=== PATIENT | male | born 1950 | race Caucasian/White ===

== ENCOUNTER 2016-08-19 11:16 | Emergency (ER) | payer OTHER ==
[~2016-08-19] VITALS: Ht 172.7 cm; Wt 79.4 kg
[2016-08-19 11:21] VITALS: BP 138/94
--- NOTE | 2016-08-19 11:37 | ED INFLUENZA/URI COMPLAINT ---
History of Present Illness General Chief Complaint: Upper Respiratory Sx/Fever Stated Complaint: COUGH X 2 MONTHS Source: patient Exam Limitations: no limitations Vital Signs & Intake/Output Vital Signs & Intake/Output Vital Signs Date Time Temp Pulse Resp B/P B/P Pulse O2 O2 Flow FiO2 Mean Ox Delivery Rate 08/19 1152 98 Room Air 08/19 1121 97.2 86 18 138/94 99 Room Air Allergies Coded Allergies: celecoxib (From CELEBREX) (Severe, ANAPHYLAXIS 11/12/15) Reconcile Medications Azithromycin (Zithromax) 250 MG TABLET 1 DP PO AD bronchitis 2 the first day followed by 1 for days 2-5 Benzonatate (Tessalon Perle) 100 MG CAPSULE 1 CAP PO TID PRN cough Mometasone Furoate (Nasonex) 50 MCG SPRAY.PUMP 2 SPRAY NASB DAILY PRN congestion Prednisone 20 MG TABLET 2 TAB PO DAILY cough Triage Note: C/O DRY COUGH X 2 MONTHS, SAW PMD 2 WEEKS AGO, WAS TOLD HE HAD ALLERGIES. STATES THAT WHEN HE TAKES A DEEP BREATH, IT CAUSES COUGHING. DENIES CHEST OR OTHER PAIN. Triage Nurses Notes Reviewed? yes Onset: Gradual Duration: 2 monts Timing: remote history Severity: moderate Severity Numbers: 7 Prior Episodes/Possible Cause: occassional episodes No Modifying Factors: none Associated Symptoms: cough HPI: Patient is a 66-year-old male with history of hepatitis C presenting to the emergency department with chief complaint of nonproductive cough at that has been going on for the past 2 months. Patient reports that the cough is worse in the morning right when he wakes up. History of allergies, does not take anything daily. No daily medications. Denies any fevers or chills nausea or vomiting. No chest pain or shortness of breath. No palpitations. Denies abdominal pain. He does report that he feels pain over the muscles on his abdomen when he is coughing only. No recent travel. Size primary care physician 2 weeks ago who told him that it was his allergies causing the cough. He denied any prescription medications, was not advised to start any over-the- counter medications as well. (RAJINDER LR,MAVIS) Past History Travel History Traveled to [place] past 21 day No Medical History Any Pertinent Medical History? see below for history Neurological: NONE Cardiovascular: NONE Respiratory: NONE Gastrointestinal: hepatitis c Hepatic: NONE Renal: NONE Musculoskeletal: NONE Psychiatric: NONE Endocrine: NONE Tetanus Vaccine: 06/07/13 Surgical History Surgical History: non-contributory Psychosocial History Who do you live with Family What is your primary language Serbian Tobacco Use: Never used ETOH Use: occasional use Family History Hx Contributory? No (MAVIS GONZALEZ) Review of Systems Review of Systems Constitutional: Reports: no symptoms. Comments Review of systems: See HPI, All other systems negative. Constitutional, no chills fever or weight loss HEENT: No visual changes no sore throat Cardiovascular: No chest pain ,palpitation , orthopnea or ankle swelling Skin, no jaundice no rashes Respiratory: No dyspnea sputum or hemoptysis GI: No nausea no vomiting : No dysuria No hematuria Muscle skeletal: no back pain, no neck pain, Neurologic: No numbness no confusion no nicole Psych: No stress anxiety or depression,. Heme/endocrine: No bruising no bleeding no polyuria or polydipsia Immunology: No splenectomy or history of AIDS (MAVIS GONZALEZ) Physical Exam Physical Exam General Appearance: well developed/nourished, no apparent distress, alert, awake , comfortable Ears, Nose, Throat: nasal congestion Comments: Well-developed well-nourished person in no acute distress HEENT: Pupils equally round and reactive to light and accommodation. Nose is atraumatic. External auditory canal and Tympanic membranes clear. Pharynx normal. No swelling or edema. pnd noted in posterior pharynx. Neck: Supple, no lymphadenopathy, normal range of motion without pain or tenderness Back: Nontender Cardiovascular: Regular rate and rhythms no murmurs rubs or gallops, normal JVP Respiratory: Chest nontender. No respiratory distress.breath sounds slightly diminished to auscultation bilaterally, reactive cough on exam. Extremity: No edema, no calf pain Neuro: Alert oriented x3 Skin: No appreciable rash on exposed skin, skin is warm and dry. Psych: Mood and affect is normal, memory and judgment is normal. Core Measures Severe Sepsis Present: No Septic Shock Present: No (MAVIS GONZALEZ) Progress Differential Diagnosis: influenza, pneumonia, pharyngitis, sinusitis, bronchitis Plan of Care: Orders Procedure Date/time Status XRY-CHEST XRAY, PA AND LATERAL 08/19 1143 Active Diagnostic Imaging: Viewed by Me: Radiology Read. Discussed w/RAD: Radiology Read. Radiology Impression: ATIENT: ROSALINDA CANCHOLA JR PRESENT AGE: 66 PATIENT ACCOUNT NO: [id number] : 51 LOCATION: [facility] ORDERING PHYSICIAN: MAVIS LR SERVICE DATE: 08/19/16-1143 EXAM TYPE: RAD - XRY-CHEST XRAY, PA AND LATERAL EXAMINATION: XR CHEST CLINICAL INFORMATION: Cough x2 months. COMPARISON: Chest radiograph 11/12/2015. TECHNIQUE : 2 views of the chest were obtained. FINDINGS: There are ill-defined reticular markings with a basilar predominant distribution. No overt consolidative disease or effusion. The cardiac silhouette and upper mediastinal contours are normal. No acute osseous finding. IMPRESSION: There are ill-defined reticular opacities with a lower lobe predominant distribution. Findings may represent early changes of pulmonary edema. Other infectious or inflammatory conditions are not excluded. No lobar consolidation. DICTATED BY: WILLIE FERNANDEZ MD DATE/TIME DICTATED:08/19/161226 RUBBER TIRE CURER:ELSIE DATE/TIME TRANSCRIBED:1226 CONFIDENTIAL, DO NOT COPY WITHOUT APPROPRIATE AUTHORIZATION. < Electronically signed in Other Vendor System> SIGNED BY: WILLIE FERNANDEZ MD 08/19/16 1235 Initial ED EKG: none Comments: Patient is asymptomatic unless he exerts himself. Patient resting calmly. No lower extremity edema. Vitals are stable. Discussed with Dr. Lee, agrees that x-ray findings are nonspecific. We will treat for questionable bronchitis versus postnasal drip. Patient will follow-up with PCP. Given copy of x-ray report. He'll return for any worsening symptoms or concerns. (RAJINDER LR,MAVIS) Departure Departure Time of Disposition: 1242 Disposition: HOME OR SELF CARE Condition: Stable Clinical Impression Primary Impression: Post-nasal drip Secondary Impressions: Cough Referrals: UNKNOWN (PCP/Family) Additional Instructions: Follow-up with your primary care physician collimating away. Take azithromycin, Medrol Dosepak and Flonase as prescribed. Increase fluids. Return for worsening symptoms or concerns. Attached is here extremity report. PATIENT: ROSALINDA CANCHOLA JR PRESENT AGE: 66 PATIENT ACCOUNT NO: [id number] : 51 LOCATION: [facility] ORDERING PHYSICIAN: MAVIS LR SERVICE DATE: 08/19/16-1143 EXAM TYPE: RAD - XRY-CHEST XRAY, PA AND LATERAL EXAMINATION: XR CHEST CLINICAL INFORMATION: Cough x2 months. COMPARISON: Chest radiograph 11/12/2015. TECHNIQUE: 2 views of the chest were obtained. FINDINGS: There are ill-defined reticular markings with a basilar predominant distribution. No overt consolidative disease or effusion. The cardiac silhouette and upper mediastinal contours are normal. No acute osseous finding. IMPRESSION: There are ill-defined reticular opacities with a lower lobe predominant distribution. Findings may represent early changes of pulmonary edema. Other infectious or inflammatory conditions are not excluded. No lobar consolidation. DICTATED BY: WILLIE FERNANDEZ MD DATE/TIME DICTATED:08/19/161226 RUBBER TIRE CURER:ELSIE DATE/TIME TRANSCRIBED:08/19/161226 CONFIDENTIAL, DO NOT COPY WITHOUT APPROPRIATE AUTHORIZATION. <Electronically signed in Other Vendor System> SIGNED BY: WILLIE FERNANDEZ MD 08/19 1235 Departure Forms: Customer Survey General Discharge Information Prescriptions: Current Visit Scripts Azithromycin (Zithromax) 1 DP PO AD #6 TAB 2 the first day followed by 1 for days 2-5 Benzonatate (Tessalon Perle) 1 CAP PO TID PRN cough #30 CAP Mometasone Furoate (Nasonex) 2 SPRAY NASB DAILY PRN congestion #1 INHAL Prednisone 2 TAB PO DAILY #8 TAB (RAJINDER LR,MAVIS) PA/AEROGRAPHER Co-Sign Statement Statement: ED Attending supervision documentation- [] I saw and evaluated the patient. I have also reviewed all the pertinent lab results and diagnostic results. I agree with the findings and the plan of care as documented in the PA's/AEROGRAPHER's documentation. [X] I have reviewed the ED Record and agree with the PA's/AEROGRAPHER's documentation. [] Additions or exceptions (if any) to the PAs/AEROGRAPHER's note and plan are summarized below: [] (ROOSEVELT EDDY,DAYRON Archer)
--- NOTE | 2016-08-19 12:35 | RADIOLOGY REPORT ---
EXAMINATION: XR CHEST CLINICAL INFORMATION: Cough x2 months. COMPARISON: Chest radiograph 11/12/2015. TECHNIQUE: 2 views of the chest were obtained. FINDINGS: There are ill-defined reticular markings with a basilar predominant distribution. No overt consolidative disease or effusion. The cardiac silhouette and upper mediastinal contours are normal. No acute osseous finding. IMPRESSION: There are ill-defined reticular opacities with a lower lobe predominant distribution. Findings may represent early changes of pulmonary edema. Other infectious or inflammatory conditions are not excluded. No lobar consolidation.
[2016-08-19] MEDS ORDERED: NASONEX17 GM NASB (12:45)
[2016-08-19] MEDS ORDERED: ZITHROMAX250 M2 PO (12:45)
[2016-08-19] MEDS ORDERED: TESSALON PERLE100 M1 PO (12:45)
[2016-08-19] MEDS ORDERED: PREDNISONE20 M1 PO (12:45)
== END 2016-08-19 13:27 ==
LOC: ERH 11:16
DX: R09.82 Postnasal drip (principal); R05 Cough

== ENCOUNTER 2017-08-21 16:43 | Emergency (ER) | payer OTHER ==
[~2017-08-21] VITALS: Ht 172.7 cm; Wt 82.6 kg
[~2017-08-21 16:43] MED LIST: NASONEX17 GM NASB; PREDNISONE20 M1 PO; TESSALON PERLE100 M1 PO; ZITHROMAX250 M2 PO
--- NOTE | 2017-08-21 17:14 | ED MVC/FALL/TRAUMA COMPLAINT ---
History of Present Illness General Chief Complaint: Fall Stated Complaint: 12 FT FALL LADDER TO CONCRETE BILAT LEXT PAIN Source: patient, family Exam Limitations: no limitations Vital Signs & Intake/Output Vital Signs & Intake/Output Vital Signs Date Time Temp Pulse Resp B/P B/P Pulse O2 O2 Flow FiO2 Mean Ox Delivery Rate 08/21 1834 73 16 148/76 94 Room Air 08/21 1702 Room Air 08/21 1652 98.6 76 18 164/98 98 Room Air Allergies Coded Allergies: celecoxib (From CELEBREX) (Severe, ANAPHYLAXIS 11/12/15) Reconcile Medications Azithromycin (Zithromax) 250 MG TABLET 1 DP PO AD bronchitis 2 the first day followed by 1 for days 2-5 Benzonatate (Tessalon Perle) 100 MG CAPSULE 1 CAP PO TID PRN cough Mometasone Furoate (Nasonex) 50 MCG SPRAY.PUMP 2 SPRAY NASB DAILY PRN congestion Prednisone 20 MG TABLET 2 TAB PO DAILY cough Triage Note: 67 YO MALE TO TRIAGE C/O BILATERAL LEG UPPER LEG PAIN. PT STATES HE FELL OFF OF A 12 FT LADDER (WAS AT THE TOP) AND LANDED ON HIS FEET, STATES HE HAS A SAMM IN HIS L LEG. STATES WHEN HE FELL HE PLACED MORE WEIGHT ON HIS R LEG THEN HIS L. DENIES HEADSTRIKE. DENIES BLOOD THINNER. DENIES NECK/BACK PAIN. Triage Nurses Notes Reviewed? 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 Lost his balance, fell about 12 feet landing on both his feet, with the impact mostly on both heels. Did not hit his head or his upper body, did not lose consciousness. Experienced lower back pain after which has since resolved. The fall occurred about 4 hours ago. He is now experiencing bilateral upper thigh and pelvic pain and is unable to walk due to pain. He has full sensation in both his legs and full range of motion that is slightly limited by pain. He has no neurological complaints and denies paresthesia, incontinence, urinary retention, or weakness. He has no other complaints. Past History Travel History Traveled to [place] past 21 day No Medical History Any Pertinent Medical History? see below for history Neurological: NONE EENT: NONE Cardiovascular: NONE Respiratory: PULOMARY FIBROSIS Gastrointestinal: hepatitis c Hepatic: NONE Renal: NONE Musculoskeletal: NONE Psychiatric: NONE Endocrine: NONE Blood Disorders: NONE Cancer(s): NONE STROBOSCOPE OPERATOR/Reproductive: NONE Tetanus Vaccine: 06/07/13 Surgical History Surgical History: non-contributory Psychosocial History Who do you live with Family What is your primary language Yemeni Tobacco Use: Never used Family History Hx Contributory? No Review of Systems Review of Systems Constitutional: Reports: no symptoms. Eyes: Reports: no symptoms. Ears, Nose, Throat, Mouth: Reports: no symptoms. Respiratory: Reports: no symptoms. Cardiovascular: Reports: no symptoms. Gastrointestinal/Abdominal: Reports: no symptoms. Genitourinary: Reports: no symptoms. Musculoskeletal: Reports: no symptoms. Skin: Reports: no symptoms. Neurological/Psychological: Reports: no symptoms. All Other Systems: Reviewed and Negative Physical Exam Physical Exam General Appearance: well developed/nourished, no apparent distress Head: atraumatic, normal appearance Eyes: Bilateral: normal appearance. Ears, Nose, Throat, Mouth: hearing grossly normal, moist mucous membrane Neck: normal inspection, supple, full range of motion Respiratory: normal breath sounds, no respiratory distress Cardiovascular: regular rate/rhythm Gastrointestinal: soft, non-tender Back: normal inspection, normal range of motion, sacral tenderness Extremities: full ROM of ankles, knees, hips, , sensation intact, right anterior pelvic tenderness, no bony deformity Neurologic/Psych: no motor/sensory deficits, awake, alert, oriented x 3 Skin: abrasion to right forearm Core Measures ACS in differential dx? No CVA/TIA Diagnosis No Sepsis Present: No Sepsis Focused Exam Completed? No Progress Differential Diagnosis: abd injury, C/T/L spine injury, ext injury, pelvis injury, spinal cord injury Plan of Care: Current Medications Sig/Hayley Start time Last Medication Dose Stop Time Status Admin Oxycodone/ 1 TAB ONCE ONE 08/21 1900 UNVr Acetaminophen 08/21 190 (Percocet) Ketorolac 30 MG ONCE ONE 08/21 1844 UNVr Tromethamine 08/21 184 (Toradol) Patient feels better. Neuro exam normal, imaging normal. Was able to walk steadily with a walker without difficulty. Will discharge patient home with a walker and outpatient follow up. Diagnostic Imaging: Viewed by Me: Radiology Read, CT Scan. Discussed w/RAD: Radiology Read, CT Scan. Radiology Impression: PATIENT: ROSALINDA CANCHOLA Albert PRESENT AGE: 67 PATIENT ACCOUNT NO: [id number] : 51 LOCATION: [facility] ORDERING PHYSICIAN: Moses Muniz MD SERVICE DATE: 08/21/17 EXAM TYPE : CAT - CT PELVIS WO IV CONTRAST EXAMINATION: CT PELVIS WITHOUT CONTRAST CLINICAL INFORMATION: Fall. Now with tenderness anterior right side of pelvis and sacrum. COMPARISON: CT abdomen pelvis 08/23/2012 TECHNIQUE: Axial images obtained through the pelvis. Coronal and sagittal reformatted images are performed at the CT scanner DLP: 758.81 mGy-cm FINDINGS: There is no fracture. No acute osseous abnormality. Hip joints are maintained. Sacroiliac joints and symphysis pubis are normal. No focal bone lesion. Intramedullary samm present in the left femur with a healed midshaft left femoral fracture partially imaged. There are small soft tissue calcifications, related to the prior surgery, adjacent to the greater tuberosity of the left femur. There is diverticulosis of left colon without evidence of diverticulitis. The appendix has been surgically removed. Visualized small bowel loops are unremarkable. The prostate and the bladder are normal. No ventral wall or inguinal hernia. There are a scattered vascular wall calcification of the iliac arteries vascular calcification of femoral arteries without aneurysm. IMPRESSION: No acute osseous abnormality. No fracture of pelvis including sacrum and coccyx. DICTATED BY: Julien Paris MD DATE/TIME DICTATED:08/21/171757 TELEHEALTH NURSE EDUCATOR:ELSIE DATE/TIME TRANSCRIBED:08/21/171757 CONFIDENTIAL, DO NOT COPY WITHOUT APPROPRIATE AUTHORIZATION. <Electronically signed in Other Vendor System> SIGNED BY: Julien Paris MD 08/21/171807, PATIENT: ROSALINDA CANCHOLA JR PRESENT AGE: 67 PATIENT ACCOUNT NO: [id number] : 51 LOCATION: [facility] ORDERING PHYSICIAN: Sushant LR SERVICE DATE: 08/21/17 EXAM TYPE : RAD - XRY-FOOT COMPLETE, LEFT; XRY-FOOT COMPLETE, R; XRY-KNEE COMPLETE LEFT; [id number], LEFT; [id number], RIGHT EXAMINATION: XR KNEE, LEFT XR TIBIA AND FIBULA, LEFT XR TIBIA AND FIBULA, RIGHT XR FOOT, RIGHT XR FOOT, LEFT CLINICAL INFORMATION: History of fall from 12 foot ladder onto legs. Unable to walk. Bilateral pain. COMPARISON: None TECHNIQUE: Left knee, 4 views Right leg, 2 views Left leg, 2 views Left foot, 3 views Right foot, 3 views FINDINGS: Left knee: The visualized portion of the femoral intramedullary nail and distal interlocking screws are intact. Alignment is normal at the left knee. No fracture or subluxation. There appears to be a trace amount of fluid in the suprapatellar bursa. Minimal marginal osteophyte formation at patellofemoral and medial tibiofemoral compartment. Left leg: Alignment is normal at the knee and ankle. Intact lateral fixation plate and screws of the distal fibular metadiaphysis with old healed fracture in this region. There is an old residual screw fragment in the distal tibial metadiaphysis. No acute osseous injury. Peripheral vascular calcifications. Left foot: Alignment is normal. Small focus enthesophyte at the Achilles insertion onto the calcaneus. Small accessory navicular ossification center. No acute fracture or malalignment in the foot. Atherosclerotic calcification of peripheral vessels. Right leg: No acute findings at the visualized knee. Alignment is normal at the knee and ankle. Callus formation around an old, healed fracture of the mid tibial diaphysis. Within this area of old injury, there is a thin curvilinear lucency in the anterior cortex (involving the inner third/endosteal cortex). This is likely related to the remote injury. There are no comparison radiographs available. Peripheral vessels are calcified. Right foot: Alignment is normal. No acute fracture or subluxation. 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 Mild osteoarthrosis of the great toe MTP joint. IMPRESSION: 1. No acute findings in either knee. 2. Old, healed fracture with callus formation of the mid diaphysis of the right tibia. The thin, incomplete lucency within the inner third of the anterior cortex at the site of old injury is presumably related to the old injury. There is no disruption of the outer cortical surface. No convincing acute fracture in this area. No comparison radiographs at this facility. 3. Old, healed fracture of the distal left fibula with intact plate- screw fixation. 4. No acute findings in either foot. DICTATED BY: Mani Herrera MD DATE/TIME DICTATED:08/21/171830 TELEHEALTH NURSE EDUCATOR:RAD.BARTH DATE/TIME TRANSCRIBED:08/21/171830 CONFIDENTIAL, DO NOT COPY WITHOUT APPROPRIATE AUTHORIZATION. <Electronically signed in Other Vendor System> SIGNED BY: Mani Herrera MD 08/21/171846 Departure Departure Disposition: HOME OR SELF CARE Condition: Stable Clinical Impression Primary Impression: Fall from ladder Qualifiers: Encounter type: initial encounter Qualified Code: W11.XXXA - Fall on and from ladder, initial encounter Referrals: Raquel EDDY,Issac Panchal (PCP/Family) Additional Instructions: Follow up with your PCP. If any new or worsening symptoms return to ER immediately. Do not drive or operate machinery while on Percocet. Departure Forms: Customer Survey General Discharge Information Prescriptions: Current Visit Scripts Oxycodone HCl/Acetaminophen (Oxycodone-Acetaminophen 5-325) 1 TAB PO BIDP PRN PAIN #30 TAB
--- NOTE | 2017-08-21 18:08 | CT SCAN REPORT ---
EXAMINATION: CT LUMBAR SPINE WITHOUT CONTRAST CLINICAL INFORMATION: Fall. Now with pain. COMPARISON: CT scan abdomen and pelvis 08/23/2012. TECHNIQUE: Axial images obtained through the lumbar spine. Coronal and sagittal reformatted images are performed at the CT scanner. DLP: 746.77 mGy-cm FINDINGS: Lumbar vertebrae have normal height and alignment. No fracture or bone destruction. No spondylolysis or spondylolisthesis. No paraspinal hematoma or fluid collection or mass. There are scattered vascular calcifications of the abdominal aorta without aneurysm. The visualized portions of the kidneys are normal. There is diverticulosis of the sigmoid colon without diverticulitis. The bladder is unremarkable. SPINAL LEVELS: T12-L1: Normal. L1-L2: Normal. L2-L3: Normal. L3-L4: There is prominent vertebral spurs at the endplates of the L3-L4 vertebrae. The lumbar disc height is normal. No focal disc protrusion. No central canal stenosis. Neural foramina are open. The facet joints are normal. L4-L5: Minor degenerative lipping at the anterior endplates of the lumbar vertebrae. Lumbar disc height normal. No focal disc protrusion. Facet joints are normal. No central canal stenosis. Neural foramina open. L5-S1: Small endplate spurs at the posterior inferior endplate of L5. No focal disc protrusion. No central canal stenosis. Neural foramina open. Mild facet joint arthrosis. IMPRESSION: No acute abnormality. Mild degenerative change of lumbar spine. No focal disc protrusion. No central canal stenosis or narrowing of neural foramina.
--- NOTE | 2017-08-21 18:08 | CT SCAN REPORT ---
EXAMINATION: CT PELVIS WITHOUT CONTRAST CLINICAL INFORMATION: Fall. Now with tenderness anterior right side of pelvis and sacrum. COMPARISON: CT abdomen pelvis 08/23/2012 TECHNIQUE: Axial images obtained through the pelvis. Coronal and sagittal reformatted images are performed at the CT scanner DLP: 758.81 mGy-cm FINDINGS: There is no fracture. No acute osseous abnormality. Hip joints are maintained. Sacroiliac joints and symphysis pubis are normal. No focal bone lesion. Intramedullary panda present in the left femur with a healed midshaft left femoral fracture partially imaged. There are small soft tissue calcifications, related to the prior surgery, adjacent to the greater tuberosity of the left femur. There is diverticulosis of left colon without evidence of diverticulitis. The appendix has been surgically removed. Visualized small bowel loops are unremarkable. The prostate and the bladder are normal. No ventral wall or inguinal hernia. There are a scattered vascular wall calcification of the iliac arteries vascular calcification of femoral arteries without aneurysm. IMPRESSION: No acute osseous abnormality. No fracture of pelvis including sacrum and coccyx.
--- NOTE | 2017-08-21 18:31 | RADIOLOGY REPORT ---
EXAMINATION: XR KNEE, RIGHT CLINICAL INFORMATION: Fell. Can't walk. Pain. COMPARISON: None TECHNIQUE: Four views of the right knee. FINDINGS: No acute fracture. No dislocation. No joint effusion. There is an old healed fracture with residual deformity of the midshaft of the right tibia. There are extensive vascular calcifications. IMPRESSION: Normal right knee.
--- NOTE | 2017-08-21 18:47 | RADIOLOGY REPORT ---
EXAMINATION: XR KNEE, LEFT XR TIBIA AND FIBULA, LEFT XR TIBIA AND FIBULA, RIGHT XR FOOT, RIGHT XR FOOT, LEFT CLINICAL INFORMATION: History of fall from 12 foot ladder onto legs. Unable to walk. Bilateral pain. COMPARISON: None TECHNIQUE: Left knee, 4 views Right leg, 2 views Left leg, 2 views Left foot, 3 views Right foot, 3 views FINDINGS: Left knee: The visualized portion of the femoral intramedullary nail and distal interlocking screws are intact. Alignment is normal at the left knee. No fracture or subluxation. There appears to be a trace amount of fluid in the suprapatellar bursa. Minimal marginal osteophyte formation at patellofemoral and medial tibiofemoral compartment. Left leg: Alignment is normal at the knee and ankle. Intact lateral fixation plate and screws of the distal fibular metadiaphysis with old healed fracture in this region. There is an old residual screw fragment in the distal tibial metadiaphysis. No acute osseous injury. Peripheral vascular calcifications. Left foot: Alignment is normal. Small focus enthesophyte at the Achilles insertion onto the calcaneus. Small accessory navicular ossification center. No acute fracture or malalignment in the foot. Atherosclerotic calcification of peripheral vessels. Right leg: No acute findings at the visualized knee. Alignment is normal at the knee and ankle. Callus formation around an old, healed fracture of the mid tibial diaphysis. Within this area of old injury, there is a thin curvilinear lucency in the anterior cortex (involving the inner third/endosteal cortex). This is likely related to the remote injury. There are no comparison radiographs available. Peripheral vessels are calcified. Right foot: Alignment is normal. No acute fracture or subluxation. 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 Mild osteoarthrosis of the great toe MTP joint. IMPRESSION: 1. No acute findings in either knee. 2. Old, healed fracture with callus formation of the mid diaphysis of the right tibia. The thin, incomplete lucency within the inner third of the anterior cortex at the site of old injury is presumably related to the old injury. There is no disruption of the outer cortical surface. No convincing acute fracture in this area. No comparison radiographs at this facility. 3. Old, healed fracture of the distal left fibula with intact plate-screw fixation. 4. No acute findings in either foot.
[2017-08-21] MEDS ORDERED: OXYCODONE-ACET1 EACH PO (20:00)
[2017-08-21 20:10] VITALS: BP 166/90
== END 2017-08-21 20:17 ==
LOC: ERH 16:43
DX: M79.651 Pain in right thigh (principal); M79.652 Pain in left thigh; R10.2 Pelvic and perineal pain; M54.5 Low back pain; M79.671 Pain in right foot; M79.672 Pain in left foot
CPT/HCPCS: 73562-LT; 73562-RT; 73590-LT; 73590-RT; 73630-LT; 73630-RT; 96372; J1885

== ENCOUNTER 2017-09-22 12:13 | Emergency (ER) | payer OTHER ==
[~2017-09-22] VITALS: Ht 172.7 cm; Wt 82.6 kg
[~2017-09-22 12:13] MED LIST changes: +OXYCODONE-ACET1 EACH PO
[2017-09-22 12:22] VITALS: BP 135/85
--- NOTE | 2017-09-22 12:28 | ED HAND/WRIST INJURY COMPLAINT ---
History of Present Illness General Chief Complaint: Hand or Wrist Injury Stated Complaint: R HAND INJURY Source: patient Exam Limitations: no limitations Vital Signs & Intake/Output Vital Signs & Intake/Output ED Intake and Output 09/23 0000 09/22 1200 Intake Total Output Total Balance Patient 182 lb Weight Weight Estimated Measurement Method Allergies Coded Allergies: celecoxib (From CELEBREX) (Severe, ANAPHYLAXIS 11/12/15) Reconcile Medications Cephalexin (Keflex) 500 MG CAPSULE 1 CAP PO TID cellulitis Oxycodone HCl/Acetaminophen (Percocet 5-325 MG Tablet) 5 MG-325 MG TABLET 1 TAB PO BID PRN pain Prednisone (Deltasone) 20 MG TABLET 1 TAB PO BID gout Triage Note: PT TO ED C/O SUDDEN ONSET OF RIGHT THUMB PAIN SINCE YESTERDAY. DENIES INJURY. STATES PAIN IS RADIATING TO OTHER FINGERS/HAND. UNABLE TO BEND THUMB. Triage Nurses Notes Reviewed? yes Occurred: yesterday Duration: day(s): Timing: recent history Injury Environment: home Severity: severe Severity Numbers: 10 Pain/Injury Location: Right: 1st finger. HPI: 67yo male presents to ED complaining of right thumb pain beginning yesterday. Patient states pain is now severe, 10/10, throbbing. Patient tried taking Aleve with no relief of symptoms. He has no history of similar symptoms in the past. Patient reports swelling and redness to his thumb and difficulty flexing the thumb. There was no trauma or injury prior to onset of his pain. Patient denies fevers, chills, vomiting.. (Magdalene Jones) Past History Travel History Traveled to [place] past 21 day No Medical History Any Pertinent Medical History? see below for history Neurological: NONE EENT: NONE Cardiovascular: NONE Respiratory: PULOMARY FIBROSIS Gastrointestinal: hepatitis c Hepatic: NONE Renal: NONE Musculoskeletal: NONE Psychiatric: NONE Endocrine: NONE Blood Disorders: NONE Cancer(s): NONE SENIOR SOFTWARE QUALITY ENGINEER/Reproductive: NONE Tetanus Vaccine: 06/07/13 Surgical History Surgical History: non-contributory Psychosocial History Who do you live with Family What is your primary language Khmer Tobacco Use: Never used ETOH Use: denies use Illicit Drug Use: denies illicit drug use Family History Hx Contributory? No (Magdalene Jones) Review of Systems Review of Systems Constitutional: Reports: no symptoms. EENTM: Reports: no symptoms. Respiratory: Reports: no symptoms. Cardiovascular: Reports: no symptoms. GI: Reports: no symptoms. Genitourinary: Reports: no symptoms. Musculoskeletal: Reports: see HPI. Skin: Reports: see HPI. Neurological/Psychological: Reports: no symptoms. Hematologic/Endocrine: Reports: no symptoms. Immunologic/Allergic: Reports: no symptoms. All Other Systems: Reviewed and Negative (Delphine LR,Magdalene Caldwell) Physical Exam Physical Exam General Appearance: well developed/nourished, no apparent distress, alert, awake Head: atraumatic, normal appearance Eyes: Bilateral: normal appearance. Ears, Nose, Throat: hearing grossly normal Neck: normal inspection, supple, full range of motion Cardiovascular/Respiratory: normal peripheral pulses Back: normal inspection, normal range of motion Wrist Left: normal range of motion, normal inspection Wrist Right: normal range of motion, normal inspection, nontender Hand Left: normal inspection, normal range of motion Hand Right: erythema, warmth, swelling and tenderness to PIP of thumb, limited flexion at PIP joint, no fluctuance Neurologic/Tendon: normal sensation Skin: intact, warm/dry, erythema as mentioned above (Magdalene Jones) Progress Differential Diagnosis: abscess, cellulitis, fracture, gout, sprain, tenosynovitis Plan of Care: Current Medications Sig/Hayley Start time Last Medication Dose Stop Time Status Admin Ketorolac 30 MG ONCE ONE 09/22 1230 CAN Tromethamine 09/22 1231 (Toradol) Patient's x-ray is within normal limits. Physical exam shows erythema, warmth, tenderness. Patient had no trauma or skin wound prior to onset of symptoms. Symptoms likely related to cellulitis versus gout. The patient does not have physical exam findings consistent with flexor tenosynovitis at this time. Patient treated with antibiotics and prednisone to cover for gout. He was instructed to follow-up with his primary care doctor this week and return here to the emergency department in 2 days for recheck. Patient given strict return precautions for worsening symptoms. He agrees with the plan of care, he is in no acute distress, nontoxic appearing, his vital signs are stable. The patient agrees with the plan of care. Discussed this patient with Dr. Garnett who agrees with the plan of care. Diagnostic Imaging: Viewed by Me: Radiology Read. Discussed w/RAD: Radiology Read. Radiology Impression: PATIENT: ROSALINDA CANCHOLA PRESENT AGE: 67 PATIENT ACCOUNT NO: [id number] : 51 LOCATION: [facility] ORDERING PHYSICIAN: Magdalene LR SERVICE DATE: 09/22/17 EXAM TYPE: RAD - XRY-FINGERS, RIGHT EXAMINATION: XR FINGER, RIGHT CLINICAL INFORMATION: Thumb pain COMPARISON: None TECHNIQUE: Three views of the right right thumb. FINDINGS: No fracture. Joint spaces well maintained. No focal soft tissue swelling. No radiopaque foreign body. IMPRESSION: No fracture. DICTATED BY: Manjit Bernard MD DATE/TIME DICTATED:09/22/171354 AIDS SOCIAL WORKER: ELSIE DATE/TIME TRANSCRIBED:09/22/171354 CONFIDENTIAL, DO NOT COPY WITHOUT APPROPRIATE AUTHORIZATION. <Electronically signed in Other Vendor System> SIGNED BY: Manjit Bernard MD 09/22/17 1400 (Delphine LR,Magdalene Caldwell) Departure Departure Disposition: HOME OR SELF CARE Condition: Stable Clinical Impression Primary Impression: Thumb pain Qualifiers: Laterality: right Qualified Code: M79.644 - Pain in right finger(s) Referrals: Issac García MD Additional Instructions: Begin antibiotics and anti-inflammatory medication as prescribed. Follow-up with your primary care doctor later this week. If you cannot see your primary care doctor return here in 2 days for reevaluation. Please note that there might be incidental findings in your evaluation that are unrelated to the current emergency department visit. Please notify your primary care doctor about this emergency department visit in order to obtain and review all of the testing performed so that these incidental findings can be monitored as needed. If you had an x-ray performed, please understand that some fractures may not be seen on the initial set of x-rays. If your symptoms persist you might need a repeat set of x-rays to check for such a fracture. If you had a laceration evaluated, please understand that foreign bodies such as glass or wood may not be visible to the naked eye or on plain x-rays. If the wound becomes red, swollen, increasingly more painful or if there is any drainage from the wound, please have it reevaluated by a physician for the possibility of a retained foreign body. If you're unable to follow up as outlined in the discharge instructions please return to the emergency department. Thank you for choosing the [facility] Emergency Department for your care. It was a pleasure to serve you today. Departure Forms: Customer Survey General Discharge Information Prescriptions: Current Visit Scripts Cephalexin (Keflex) 1 CAP PO TID #21 CAP Oxycodone HCl/Acetaminophen (Percocet 5-325 MG Tablet) 1 TAB PO BID PRN pain #10 TAB Prednisone (Deltasone) 1 TAB PO BID #10 TAB (Delphine LR,Magdalene Caldwell) PA/CLOTH BLEACHING SUPERVISOR Co-Sign Statement Statement: ED Attending supervision documentation- x I saw and evaluated the patient. I have also reviewed all the pertinent lab results and diagnostic results. I agree with the findings and the plan of care as documented in the PA's/CLOTH BLEACHING SUPERVISOR's documentation. I have reviewed the ED Record and agree with the PA's/CLOTH BLEACHING SUPERVISOR's documentation. [] Additions or exceptions (if any) to the PAs/CLOTH BLEACHING SUPERVISOR's note and plan are summarized below: [] (Rell EDDY,Rafiq)
--- NOTE | 2017-09-22 14:00 | RADIOLOGY REPORT ---
EXAMINATION: XR FINGER, RIGHT CLINICAL INFORMATION: Thumb pain COMPARISON: None TECHNIQUE: Three views of the right right thumb. FINDINGS: No fracture. Joint spaces well maintained. No focal soft tissue swelling. No radiopaque foreign body. IMPRESSION: No fracture.
[2017-09-22] MEDS ORDERED: DELTASONE20 MG PO (14:18)
[2017-09-22] MEDS ORDERED: PERCOCET 5-3251 EACH PO (14:18)
[2017-09-22] MEDS ORDERED: KEFLEX500 M1 PO (14:18)
== END 2017-09-22 14:24 ==
LOC: ERH 12:13
DX: M79.644 Pain in right finger(s) (principal)
CPT/HCPCS: 73140-RT